=== PATIENT | female | born 1935 | race Asian ===

== ENCOUNTER 2016-10-23 13:47 | Emergency (ER) | payer MEDICARE, MEDICAID ==
[~2016-10-23] VITALS: Ht 165.1 cm; Wt 38.8 kg
[~2016-10-23 13:47] MED LIST: ASPI-496 PO
[2016-10-23 15:17] LABS: BLOOD UREA NITROGEN 17 mg/dL (7-18)
[2016-10-23 15:24] LABS: IS PT STATUS REG ER OR PRE ER? YES
[2016-10-23 17:20] VITALS: BP 160/91
== END 2016-10-23 17:25 | disposition home or self-care (01) ==
LOC: ED 17:00
DX: R55 Syncope and collapse (principal); Z87.891 Personal history of nicotine dependence
CPT/HCPCS: 36415; 71010; 80048; 81001; 82040; 83880; 84484; 85025; 87086; 93005; 99285

== ENCOUNTER 2017-08-05 10:01 | Inpatient (IN) | payer MEDICARE, MEDICAID ==
[~2017-08-05] VITALS: Ht 160 cm; Wt 46.9 kg
[2017-08-05] VITALS (10 sets, daily range): BP systolic 115–169; BP diastolic 78–113
[2017-08-05] MEDS ORDERED: SODIUM CHLORIDE FLUSH 10ML SYR IVF ONE (11:00)
[2017-08-05 11:30] LABS: BASOPHILS # (AUTO) 0.04 x10^3/uL (0-0.1); BASOPHILS % (AUTO) 1 % (0-1); EOSINOPHILS # (AUTO) 0.04 x10^3/uL (0-0.4); EOSINOPHILS % (AUTO) 1 % (1-7); LYMPHOCYTES # (AUTO) 0.97 x10^3/uL (1-3.4); LYMPHOCYTES % (AUTO) 14 % (22-44); MD NO; MEAN CORPUSCULAR HEMOGLOBIN 27.2 pg (27.0-34.8); MEAN CORPUSCULAR HGB CONC 32.6 g/dL (32.4-35.8); MEAN CORPUSCULAR VOLUME 83.3 fL (80-100); MEAN PLATELET VOLUME 8.4 fL (7.4-10.4); MONOCYTES # (AUTO) 0.36 x10^3/uL (0.2-0.8); MONOCYTES % (AUTO) 5 % (2-9); NEUTROPHILS % (AUTO) 79 % (42-75); PLATELET COUNT 286 x10^3/uL (130-400); RED BLOOD COUNT 5.36 x10^6/uL (3.82-5.3); RED CELL DISTRIBUTION WIDTH 14.8 % (9.6-15.2)
[2017-08-05 11:43] LABS: ALANINE AMINOTRANSFERASE 23 U/L (12-78); ALBUMIN 3.7 g/dL (3.4-5.0); ANION GAP 5 mmol/L (5-15); CALCIUM 8.9 mg/dL (8.5-10.1); CHLORIDE 107 mmol/L (98-107); CREATININE 0.93 mg/dL (0.55-1.02)
[2017-08-05 11:48] LABS: ALKALINE PHOSPHATASE 81 U/L (45-117); BILIRUBIN,TOTAL 0.5 mg/dL (0.2-1.0); TOTAL PROTEIN 7.5 g/dL (6.4-8.2); TROPONIN I < 0.015 ng/mL (0.000-0.045)
[2017-08-05 12:38] LABS: MICROSCOPIC NOT IND
[2017-08-05 12:42] LABS: CULTURE INDICATED? NO
[2017-08-05] MEDS ORDERED: LABETALOL 5MG/ML, 20ML IVPush PRN (13:30)
[2017-08-05] MEDS ORDERED: ENOXAPARIN 40 MG/0.4 ML SQ SCH (13:30)
[2017-08-05] MEDS ORDERED: ONDANSETRON 2MG/ML, 2ML IVPush PRN (13:30)
[2017-08-05] MEDS ORDERED: POLYETHYLENE GLYCOL 17 GM PACKET PO PRN (13:30)
[2017-08-05] MEDS ORDERED: ONDANSETRON ODT 4 MG PO PRN (13:30)
[2017-08-05 13:49] LABS: FREE T4 (FREE THYROXINE) 1.24 ng/dL (0.76-1.46)
[2017-08-05 19:25] LABS: TROPONIN I < 0.015 ng/mL (0.000-0.045)
[2017-08-05] MEDS: SODIUM CHLORIDE 0.9% 1,000 ML IV SCH (19:58)
[2017-08-06] VITALS (7 sets, daily range): BP systolic 112–149; BP diastolic 77–90
[2017-08-06] MEDS: SODIUM CHLORIDE 0.9% 1,000 ML IV SCH ×3 (03:00→16:44)
[2017-08-06 05:54] LABS: CHLORIDE 111 mmol/L (98-107)
[2017-08-06 05:57] LABS: BASOPHILS # (AUTO) 0.02 x10^3/uL (0-0.1); BASOPHILS % (AUTO) 0 % (0-1); EOSINOPHILS % (AUTO) 1 % (1-7); LYMPHOCYTES % (AUTO) 17 % (22-44); MD NO; MEAN CORPUSCULAR HEMOGLOBIN 27.2 pg (27.0-34.8); MEAN CORPUSCULAR HGB CONC 32.4 g/dL (32.4-35.8); MEAN CORPUSCULAR VOLUME 84.1 fL (80-100); MEAN PLATELET VOLUME 8.7 fL (7.4-10.4); MONOCYTES # (AUTO) 0.46 x10^3/uL (0.2-0.8); MONOCYTES % (AUTO) 5 % (2-9); NEUTROPHILS # (AUTO) 6.83 x10^3/uL (1.8-6.8); NEUTROPHILS % (AUTO) 77 % (42-75); PLATELET COUNT 270 x10^3/uL (130-400); RED BLOOD COUNT 5.43 x10^6/uL (3.82-5.3); RED CELL DISTRIBUTION WIDTH 14.7 % (9.6-15.2)
[2017-08-06 06:07] LABS: ALANINE AMINOTRANSFERASE 16 U/L (12-78); ALBUMIN 2.9 g/dL (3.4-5.0); ALKALINE PHOSPHATASE 67 U/L (45-117); ANION GAP 8 mmol/L (5-15); BILIRUBIN,TOTAL 0.5 mg/dL (0.2-1.0); CALCIUM 8.5 mg/dL (8.5-10.1); CHOL/HDL RATIO 1.7; CHOLESTEROL, TOTAL 127 mg/dL (140-239); CREATININE 0.88 mg/dL (0.55-1.02); HDL CHOL % 57 % (28-40); HDL CHOLESTEROL (DIRECT) 73 mg/dL (40-60); LDL CHOLESTEROL,CALCULATED 39 mg/dL (54-169); LDL/HDL RATIO 0.5 (0.5-3.0); TRIGLYCERIDES 73 mg/dL (50-200); VLDL CHOLESTEROL 15 mg/dL (0-25)
[2017-08-06] MEDS: SENNA/DOCUSATE TABLET PO SCH (09:00)
[2017-08-06 09:32] LABS: FREE T4 (FREE THYROXINE) 1.3 ng/dL (0.76-1.46); THYROID STIMULATING HORMONE 1.14 mIU/L (0.358-3.740)
[2017-08-06] MEDS ORDERED: REGADENOSON 0.4 MG/5 ML SYRINGE ONE (10:30)
[2017-08-06] MEDS: ASPIRIN 81 MG TABLET EC PO SCH (11:53)
[2017-08-06] MEDS: ENOXAPARIN 30 MG/0.3 ML SQ SCH (14:35)
[2017-08-06] MEDS ORDERED: NAPR-685 PO (16:36)
[2017-08-06] MEDS ORDERED: MULT-658 PO (16:36)
[2017-08-06] MEDS ORDERED: MELA1LIQ PO (16:36)
[2017-08-06] MEDS ORDERED: MEMA5TAB PO (16:36)
[2017-08-07] VITALS (7 sets, daily range): BP systolic 112–173; BP diastolic 70–85
[2017-08-07] MEDS ORDERED: DIPHENHYDRAMINE 25 MG CAPSULE PO ONE (01:00)
[2017-08-07] MEDS: SODIUM CHLORIDE 0.9% 1,000 ML IV SCH ×4 (01:36→23:40)
[2017-08-07 05:10] LABS: BASOPHILS # (AUTO) 0.03 x10^3/uL (0-0.1); BASOPHILS % (AUTO) 0 % (0-1); EOSINOPHILS % (AUTO) 1 % (1-7); LYMPHOCYTES # (AUTO) 1.22 x10^3/uL (1-3.4); LYMPHOCYTES % (AUTO) 16 % (22-44); MD NO; MEAN CORPUSCULAR HEMOGLOBIN 27.1 pg (27.0-34.8); MEAN CORPUSCULAR HGB CONC 32.5 g/dL (32.4-35.8); MEAN CORPUSCULAR VOLUME 83.5 fL (80-100); MEAN PLATELET VOLUME 8.4 fL (7.4-10.4); MONOCYTES # (AUTO) 0.25 x10^3/uL (0.2-0.8); MONOCYTES % (AUTO) 3 % (2-9); NEUTROPHILS # (AUTO) 5.92 x10^3/uL (1.8-6.8); NEUTROPHILS % (AUTO) 79 % (42-75); PLATELET COUNT 254 x10^3/uL (130-400); RED BLOOD COUNT 4.95 x10^6/uL (3.82-5.3); RED CELL DISTRIBUTION WIDTH 14.7 % (9.6-15.2)
[2017-08-07 05:20] LABS: CHLORIDE 110 mmol/L (98-107)
[2017-08-07 05:21] LABS: ALBUMIN 2.9 g/dL (3.4-5.0); ANION GAP 9 mmol/L (5-15)
[2017-08-07 05:22] LABS: CREATININE 0.88 mg/dL (0.55-1.02)
[2017-08-07] MEDS: ASPIRIN 81 MG TABLET EC PO SCH (08:58)
[2017-08-07] MEDS: SENNA/DOCUSATE TABLET PO SCH (08:58)
[2017-08-07] MEDS: ENOXAPARIN 30 MG/0.3 ML SQ SCH (13:17)
[2017-08-08 02:00] VITALS: BP 147/64
[2017-08-08 04:57] LABS: BASOPHILS # (AUTO) 0.02 x10^3/uL (0-0.1); BASOPHILS % (AUTO) 0 % (0-1); EOSINOPHILS # (AUTO) 0.12 x10^3/uL (0-0.4); EOSINOPHILS % (AUTO) 2 % (1-7); LYMPHOCYTES # (AUTO) 1.24 x10^3/uL (1-3.4); LYMPHOCYTES % (AUTO) 19 % (22-44); MD NO; MEAN CORPUSCULAR HEMOGLOBIN 26.9 pg (27.0-34.8); MEAN CORPUSCULAR HGB CONC 32.2 g/dL (32.4-35.8); MEAN CORPUSCULAR VOLUME 83.5 fL (80-100); MEAN PLATELET VOLUME 8.3 fL (7.4-10.4); MONOCYTES # (AUTO) 0.38 x10^3/uL (0.2-0.8); MONOCYTES % (AUTO) 6 % (2-9); NEUTROPHILS % (AUTO) 73 % (42-75); PLATELET COUNT 238 x10^3/uL (130-400); RED BLOOD COUNT 4.52 x10^6/uL (3.82-5.3); RED CELL DISTRIBUTION WIDTH 14.9 % (9.6-15.2)
[2017-08-08 05:14] LABS: ALBUMIN 2.6 g/dL (3.4-5.0); ANION GAP 6 mmol/L (5-15); CALCIUM 8.2 mg/dL (8.5-10.1); CHLORIDE 113 mmol/L (98-107)
[2017-08-08 05:32] LABS: ALANINE AMINOTRANSFERASE 15 U/L (12-78); ALKALINE PHOSPHATASE 60 U/L (45-117); BILIRUBIN,TOTAL 0.5 mg/dL (0.2-1.0); CREATININE 0.89 mg/dL (0.55-1.02); TOTAL PROTEIN 5.4 g/dL (6.4-8.2)
[2017-08-08] MEDS: ASPIRIN 81 MG TABLET EC PO SCH (08:26)
[2017-08-08] MEDS: SENNA/DOCUSATE TABLET PO SCH (08:26)
[2017-08-08 08:30] VITALS: BP 168/75
[2017-08-08 08:32] VITALS: BP 144/79
[2017-08-08 08:34] VITALS: BP 136/88
[2017-08-08] MEDS: SODIUM CHLORIDE 0.9% 1,000 ML IV SCH (10:46)
[2017-08-08] MEDS ORDERED: ENOXAPARIN 40 MG/0.4 ML SQ SCH (14:00)
== END 2017-08-08 12:00 | disposition home or self-care (01) | DRG 74 ==
LOC: ED 12:17 → EDIP 12:18 → ED 12:35 → 4WST 13:24 → DCLOUNGE 08-08 11:45
PROVIDERS: ADMIT Hospitalist; ATTEND Hospitalist
DX: G90.8 Other disorders of autonomic nervous system (principal); E44.0 Moderate protein-calorie malnutrition; Z68.1 Body mass index [BMI] 19.9 or less, adult; Z86.73 Personal history of transient ischemic attack (TIA), and cerebral infarction without residual deficits; Z87.891 Personal history of nicotine dependence; M16.0 Bilateral primary osteoarthritis of hip; M17.0 Bilateral primary osteoarthritis of knee
CPT/HCPCS: 36415; 71045; 78452; 80048; 80053; 80061; 81003; 82040; 82533; 83735; 84100; 84439; 84443; 84484; 85025; 93005; 93017; 93306; 93880; 99285; J1650; J2785; A9502; C9898; J7030; Q0163

== ENCOUNTER 2020-01-21 11:58 | Emergency (ER) | payer MEDICAID, MEDICARE, OTHER ==
[~2020-01-21] VITALS: Ht 160 cm; Wt 40.1 kg
[~2020-01-21 11:58] MED LIST changes: +MELA1LIQ PO; +MEMA5TAB PO; +MULT-658 PO; +NAPR-685 PO
--- NOTE | 2020-01-21 13:02 | NUR ---
PROJECT FACILITATOR: PT TO ROOM FROM LOBBY AT THIS TIME WITH COMIC ARTIST, AMBULATED TO ROOM WITH STEADY GAIT.
[2020-01-21 13:09] VITALS: BP 141/85
--- NOTE | 2020-01-21 13:09 | NUR ---
PT UPRIGHT ON GURNEY AWAKE & COMFORTABLE, NAD, NO NEEDS AT THIS TIME, AWAITING ARRIVAL OF SON, CALL LIGHT WITHIN REACH.
--- NOTE | 2020-01-21 14:04 | NUR ---
Patient son given discharge instructions and they have confirmed that they understand the instructions. Patient ambulatory with steady gait.
== END 2020-01-21 14:05 | disposition home or self-care (01) ==
LOC: ED 13:30
DX: S90.421A Blister (nonthermal), right great toe, initial encounter (principal); Z90.89 Acquired absence of other organs; Z90.710 Acquired absence of both cervix and uterus; Z79.82 Long term (current) use of aspirin; X58.XXXA Exposure to other specified factors, initial encounter; Y93.89 Activity, other specified; Y92.89 Other specified places as the place of occurrence of the external cause; Y99.8 Other external cause status
CPT/HCPCS: 99281

== ENCOUNTER 2020-02-03 11:57 | Emergency (ER) | payer OTHER, MEDICAID ==
[~2020-02-03] VITALS: Ht 165.1 cm; Wt 41.2 kg
[2020-02-03 12:08] VITALS: BP 178/100
[2020-02-03 12:41] LABS: BASOPHILS % (AUTO) 1 % (0-1); EOSINOPHILS % (AUTO) 4 % (1-7); LYMPHOCYTES % (AUTO) 17 % (22-44); MEAN CORPUSCULAR HEMOGLOBIN 25.6 pg (27.0-34.8); MEAN CORPUSCULAR HGB CONC 31.4 g/dL (32.4-35.8); MEAN PLATELET VOLUME 8.6 fL (7.4-10.4); MONOCYTES % (AUTO) 8 % (2-9); NEUTROPHILS % (AUTO) 70 % (42-75); PLATELET COUNT 353 x10^3/uL (130-400); RED BLOOD COUNT 4.88 x10^6/uL (3.82-5.3); RED CELL DISTRIBUTION WIDTH 14.6 % (9.6-15.2)
[2020-02-03 12:42] LABS: ALBUMIN 3.8 g/dL (3.4-5.0); ANION GAP 4 mmol/L (5-15); CALCIUM 8.4 mg/dL (8.5-10.1); CHLORIDE 109 mmol/L (98-107)
[2020-02-03 12:43] LABS: CREATININE 1.18 mg/dL (0.55-1.02)
[2020-02-03 12:47] LABS: MD NO
--- NOTE | 2020-02-03 15:18 | NUR ---
pt walked to room. as
--- NOTE | 2020-02-03 15:20 | NUR ---
results wnl. awaiting as
[2020-02-03] MEDS ORDERED: NEOSPORIN OINT. PKT 1 PACKET ONE (15:52)
== END 2020-02-03 16:11 | disposition home or self-care (01) ==
LOC: ED 15:55
DX: L03.031 Cellulitis of right toe (principal); Z90.89 Acquired absence of other organs; Z90.710 Acquired absence of both cervix and uterus; Z87.891 Personal history of nicotine dependence
CPT/HCPCS: 36415; 80048; 82040; 85025; 99282